=== PATIENT | male | born 1995 | race Caucasian/White ===

== ENCOUNTER 2023-02-20 17:24 | Emergency (ER) | payer SELFPAY ==
--- OUTSIDE RECORDS SUMMARY | 2023-02-20 17:27 | XMS REPORT | Continuity of Care Document ---
:1995 Author Organization [facility] t Address [address] [facility]. [address] [place] [address] Care Team Providers Name Role Phone PCP, PATIENT DOES NOT HAVE A Primary Care Physician Unavaila ble Nurse, [facility] Attending Clinician Unavailable ZINA WILSON Attending Clinician Unavailable VANESA MOORE Attending Clinician Unavailable Doctor Unassigned, [place] Attending Clinician Unavailable Payers Payer Name Policy Type Policy Number Effective Date Expiration Date S ource Problems Condition Condition Condition Status Onset Resolution Last Treating Co mments Source Name Details Category Date Date Treatment Clinician Date No known No known Disease Unive rs active active ity of problems problems [facility] Allergies, Adverse Reactions, Alerts Allergy Allergy Status Severity Reaction(s) Onset Inactive Treating Comm ents Source Name Type Date Date Clinician NO KNOWN Drug Active Univers ALLERGIE Class ity of S [facility] Social History Social Habit Start Date Stop Date Quantity Comments Source History of Cigarette Smoker Universi ty of tobacco use [facility] Exposure to 2022-01-09 2022-01-19 Not sure University SARS-CoV-2 00:00:00 15:42:00 [facility] (event) [place] Sex Ass[birth year] At [birth year] Universit y of 00:00:00 00:00:00 [facility] Smoking Status Start Date Stop Date Source Tobacco smoking consumption [facility] [place] [facility] unknown Branch Smokes tobacco daily 2022-01-19 00:00:00 [facility] Medications Ordered Filled Start Stop Current Ordering Indication Dosage Frequency Signature Comments Components Source Medication Medication Date Date Medication? Clinician (SIG) Name Name peggy Yes [id number] .5[in_u Place 0.5 Univers n 5 mg/gram 02-02 209118 s] Inches in i ty of (0.5 %) 00:00: right eye [place] [facility] 00 4 (four) Medic al ointment times Branch daily. Continue until you follow up with eye doctor. traMADol Yes [id number] 50mg Take 1 Univers (ULTRAM) 50 9 [id number] tablet by i ty of mg tablet 00:00: mouth [place] 00 every 6 Medical (six) Branch hours as needed for Pain (scale 7-10). peggy Yes [id number] .5[in_u Place 0.5 Univers n 5 mg/gram 02-02 [id number] s] Inches in i ty of (0.5 %) 00:00: right eye [place] [facility] 00 4 (four) Medic al ointment times Branch daily. Continue until you follow up with eye doctor. traMADol Yes [id number] 50mg Take 1 Univers (ULTRAM) 50 9 [id number] tablet by i ty of mg tablet 00:00: mouth [place] 00 every 6 Medical (six) Branch hours as needed for Pain (scale 7-10). Vital Signs Vital Name Observation Time Observation Value Comments Source Systolic blood 2022-01-19 21:00:00 172 mm[Hg] Univer sity [facility] [place] Diastolic blood 2022-01-19 21:00:00 116 mm[Hg] [facility] Heart rate 2022-01-19 21:00:00 137 /min [facility] Body temperature 2022-01-19 21:00:00 36.72 [facility] Respiratory rate 2022-01-19 21:00:00 16 /min [facility] Body height 2022-01-19 21:00:00 185.4 cm [facility] Body weight 2022-01-19 21:00:00 100.245 kg [facility] BMI 2022-01-19 21:00:00 29.16 kg/m2 [facility] Oxygen saturation in 2022-01-19 21:00:00 96 /min [facility] Arterial blood by [facility] Pulse oximetry Branch Procedures Procedure Date / Time Performed Performing Clinician Sourc e CONSENT/REFUSAL FOR 2022-01-19 20:43:49 Doctor Unassigned, No Un [facility] DIAGNOSIS AND Name Medical Branch TREATMENT Encounters Start End Encounter Admission Attending Care Care Encounter Source Date/Time Date/Time Type Type Clinicians Facility Department ID 2022-01-19 2022-01-19 Nurse Nurse, Ariel RUST [id number] Univers 16:00:00 16:20:00 Visit Db Urgent HEALTH [id number] ity of [facility] [id number] Brett as MIKE?BLEA [phone] [address] MEDICAL OFFICE BUILDING 2022-01-19 2022-01-[address] [facility] [id number] Univers 16:00:00 16:00:[facility] 2022-01-19 2022-01-[address] [facility] [id number] Univers 15:40:00 15:40:00 VANESA [facility] 2022-01-19 2022-01-19 Orders Doctor PIZARRO [id number] Univers 00:00:00 00:00:00 Only Unassigned, MARIBELL [id number] ity of [place] [facility] [id number] Brett as [phone] [facility] 009 Branch Results This patient has no known results.
--- NOTE | 2023-02-20 17:55 | EDPHYS ---
Physician Documentation [facility] Name: Karlos Arciniega Age: 27 yrs Sex: Male : 1995 Arrival Date: 02/20/2023 Time: 17:24 Bed Waiting Private MD: ED Physician John Duncan HPI: 02/20 17:45 This 27 yrs old Male presents to ER via Unassigned with complaints of Hearing Loss. cp 17:45 Onset: The symptoms/episode began/occurred 2 day(s) ago. cp 17:45 Associated signs and symptoms: Pertinent positives: earache, Pertinent negatives: cp cough, fever, sore throat, sinus congestion. Historical: - Allergies: 17:58 No Known Allergies; nj1 - PMHx: 17:58 None; nj1 - PSHx: 17:59 None; nj1 - Immunization history:: Client reports receiving the 1st dose of the Covid vaccine. - Social history:: Smoking status: Reported history of juuling and/or vaping. ROS: 17:49 ENT: Positive for ear pain, hearing loss, Negative for drainage from ear(s), sinus cp congestion, sinus pain, sore throat, difficulty swallowing, difficulty handling secretions, 17:49 Respiratory: Negative for cough, shortness of breath, wheezing, 17:49 Skin: Negative for rash, Exam: 17:50 Head/Face: Normocephalic, atraumatic. cp 17:50 Constitutional: The patient appears in no acute distress, alert, awake, comfortable, non-toxic, well developed, well nourished, 17:50 ENT: External ear(s): left ear canal obstructed by cerumen, right ear canal with swelling and mild drainage, mild pain to palpation of right ear canal, 17:50 Neck: ROM/movement: is normal, is supple, without pain, no range of motions cp limitations, Lymph nodes: no appreciated lymphadenopathy, 17:50 Chest/axilla: Inspection: normal, cp 17:50 Cardiovascular: Rate: normal, 17:50 Respiratory: the patient does not display signs of respiratory distress, Respirations: normal, no use of accessory muscles, no retractions, labored breathing, is not present, 17:50 Skin: no rash present. Vital Signs: 17:54 BP 158 / 90; Pulse 83; Resp 18; Temp 98.3; Pulse Ox 97% ; Weight 95.25 kg; Height 6 ft. nj1 2 in. ; Pain 3/10; 17:54 Body Mass Index 26.96 (95.25 kg, 187.96 cm) nj1 17:54 Pain Scale: Adult nj1 MDM: 17:55 Patient medically screened. cp 17:55 Differential diagnosis: otitis media, cerumen impaction, otitis externa. cp 17:55 Data reviewed: vital signs, nurses notes, and as a result, I will discharge patient. cp Counseling: I had a detailed discussion with the patient and/or guardian regarding the historical points, exam findings, and any diagnostic results supporting the discharge/admit diagnosis, to return to the emergency department if symptoms worsen or persist or if there are any questions or concerns that arise at home. Administered Medications: No medications were administered Disposition: 20:57 I was immediately available on-site in the Emergency Department for consultation in the ms3 care of the patient. Disposition Summary: 02/20/23 17:55 Discharge Ordered Notes: Location: Home cp Problem: new cp Symptoms: have improved cp Condition: Stable cp Diagnosis - Impacted cerumen, left ear cp - Otitis externa in other diseases classified elsewhere, right ear cp Followup: cp - With: Yoly Valadez MD - When: 2 - 3 days - Reason: Worsening of condition Discharge Instructions: - Discharge Summary Sheet cp - Earwax Buildup, Adult cp - Ear Drops, Adult cp - Otitis Externa cp Forms: - Medication Reconciliation Form cp - Thank You Letter cp - Antibiotic Education cp - Prescription Opioid Use cp - Patient Portal Instructions cp - Leadership Thank You Letter cp Prescriptions: - Cortisporin-TC 3.3-3-10-0.5 mg/mL Otic drops, suspension - instill 4 drops OTIC route every 6 hours for 7 days; 1 unit; Refills: 0, cp Product Selection Permitted Signatures: Boyd Kowalski PA PA cp Sims, Marcus, DO DO ms3 Grace Moralez RN RN nj1 Corrections: (The following items were deleted from the chart) 17:59 17:58 PSHx: None; nj1 nj1
--- NOTE | 2023-02-20 18:02 | ER ---
Nurse's Notes [facility] Name: Karlos Arciniega Age: 27 yrs Sex: Male : 1995 Arrival Date: 02/20/2023 Time: 17:24 Bed Waiting Private MD: Diagnosis: Impacted cerumen, left ear;Otitis externa in other diseases classified elsewhere, right ear Presentation: 02/20 17:54 Chief complaint: Patient states: Pt got ear wax out on Monday. Started having issues nj1 hearing one or two days later. Getting worse. Coronavirus screen: Vaccine status: Patient reports receiving the 1st dose of the Covid vaccine. Ebola Screen: Patient denies travel to an Ebola-affected area in the 21 days before illness onset. Initial Sepsis Screen: Does the patient meet any 2 criteria? No. Patient's initial sepsis screen is negative. Does the patient have a suspected source of infection? No. Patient's initial sepsis screen is negative. Risk Assessment: Do you want to hurt yourself or someone else? Patient reports no desire to harm self or others. Onset of symptoms was February 18, 2023. 17:54 Method Of Arrival: Ambulatory [facility] 17:54 Acuity: VANITA 4 nj1 Triage Assessment: 18:00 General: Appears in no apparent distress. comfortable, Behavior is calm, cooperative, nj1 appropriate for age. Pain: Complains of pain in right ear Pain currently is 3 out of 10 on a pain scale. at worst was 7 out of 10 on a pain scale. EENT: Reports decreased hearing in right ear since Monday pain in right ear. Neuro: No deficits noted. Cardiovascular: No deficits noted. Respiratory: No deficits noted. Historical: - Allergies: 17:58 No Known Allergies; nj1 - PMHx: 17:58 None; nj1 - PSHx: 17:59 None; nj1 - Immunization history:: Client reports receiving the 1st dose of the Covid vaccine. - Social history:: Smoking status: Reported history of juuling and/or vaping. Vital Signs: 17:54 BP 158 / 90; Pulse 83; Resp 18; Temp 98.3; Pulse Ox 97% ; Weight 95.25 kg; Height 6 ft. nj1 2 in. ; Pain 3/10; 17:54 Body Mass Index 26.96 (95.25 kg, 187.96 cm) nj1 17:54 Pain Scale: Adult [facility] ED Course: 17:26 Patient arrived in ED. rg4 17:27 Boyd Kowalski PA is PHCP. cp 17:27 John Duncan DO is Attending Physician. cp 17:54 Yoly Valadez MD is Referral Physician. cp 17:58 Triage completed. nj1 17:58 Arm band placed on right wrist. nj1 18:01 Provided Education on: Discharge instructions. nj1 18:01 No provider procedures requiring assistance completed. Patient did not have IV access nj1 during this emergency room visit. Administered Medications: No medications were administered Outcome: 17:55 Discharge ordered by MD. cp 18:01 Discharged to home ambulatory, nj1 18:01 Condition: stable 18:01 Discharge instructions given to patient, Instructed on discharge instructions, follow up and referral plans. medication usage, Demonstrated understanding of instructions, follow-up care, medications, Prescriptions given X 1, 18:02 Patient left the ED. nj1 Signatures: Boyd Kowalski PA PA Josie Mathew rg4 Grace Moralez, RN RN nj1 Corrections: (The following items were deleted from the chart) 17:59 17:58 PSHx: None; nj1 nj1
[2023-02-20 18:51] VITALS: BP 158/90; TEMP 98.3; O2SAT 97
== END 2023-02-20 18:02 | disposition home or self-care (01) ==
LOC: ER 17:24
DX: H61.22 Impacted cerumen, left ear (principal); H60.8X2 Other otitis externa, left ear
CPT/HCPCS: 99283

== ENCOUNTER 2023-03-21 10:46 | Emergency (ER) | payer SELFPAY ==
--- OUTSIDE RECORDS SUMMARY | 2023-03-21 10:55 | XMS REPORT | Continuity of Care Document ---
:1995 Author Organization [facility] t Address [address] [facility] [place] [address] Care Team Providers Name Role Phone PCP, PATIENT DOES NOT HAVE A Primary Care Physician Unavaila ble Nurse, [facility] Attending Clinician Unavailable ZINA WILSON Attending Clinician Unavailable VANESA MOORE Attending Clinician Unavailable Doctor Unassigned, [place] Attending Clinician Unavailable Payers Payer Name Policy Type Policy Number Effective Date Expiration Date S ource Problems Condition Condition Condition Status Onset Resolution Last Treating Co mments Source Name Details Category Date Date Treatment Clinician Date No known No known Disease Unive rs active active ity of problems problems [facility] Allergies, Adverse Reactions, Alerts Allergy Allergy Status Severity Reaction(s) Onset Inactive Treating Comm ents Source Name Type Date Date Clinician NO KNOWN Drug Active Univers ALLERGIE Class ity of S [facility] Social History Social Habit Start Date Stop Date Quantity Comments Source History of Cigarette Smoker Universi ty of tobacco use [facility] Exposure to 2022-01-09 2022-01-19 Not sure University SARS-CoV-2 00:00:00 15:42:00 [facility] (event) [place] Sex Assigned At [birth year] Universit y of 00:00:00 00:00:00 [facility] Smoking Status Start Date Stop Date Source Tobacco smoking consumption [facility] [place] [facility] unknown Branch Smokes tobacco daily 2022-01-19 00:00:00 [facility] Medications Ordered Filled Start Stop Current Ordering Indication Dosage Frequency Signature Comments Components Source Medication Medication Date Date Medication? Clinician (SIG) Name Name peggy Yes [id number] .5[in_u Place 0.5 Univers n 5 mg/gram 02-02 903410 s] Inches in i ty of (0.5 %) 00:00: right eye [place] [facility] 00 4 (four) Medic al ointment times Branch daily. Continue until you follow up with eye doctor. traMADol Yes [id number] 50mg Take 1 Univers (ULTRAM) 50 9 [id number] tablet by i ty of mg tablet 00:00: mouth [place] 00 every 6 Medical (six) Branch hours as needed for Pain (scale 7-10). peggy Yes [id number] .5[in_u Place 0.5 Univers n 5 mg/gram 02-02 910620 s] Inches in i ty of (0.5 %) 00:00: right eye [place] [facility] 00 4 (four) Medic al ointment times Branch daily. Continue until you follow up with eye doctor. traMADol Yes [id number] 50mg Take 1 Univers (ULTRAM) 50 9 [id number] tablet by i ty of mg tablet 00:00: mouth [place] 00 every 6 Medical (six) Branch hours as needed for Pain (scale 7-10). Vital Signs Vital Name Observation Time Observation Value Comments Source Systolic blood 2022-01-19 21:00:00 172 mm[Hg] Univer sity [facility] [place] [facility] Diastolic blood 2022-01-19 21:00:00 116 mm[Hg] [facility] Heart rate 2022-01-19 21:00:00 137 /min [facility] Body temperature 2022-01-19 21:00:00 36.72 [facility] Respiratory rate 2022-01-19 21:00:00 16 /min [facility] Body height 2022-01-19 21:00:00 185.4 cm [facility] Body weight 2022-01-19 21:00:00 100.245 kg [facility] BMI 2022-01-19 21:00:00 29.16 kg/m2 [facility] Oxygen saturation in 2022-01-19 21:00:00 96 /min [facility] Arterial blood by [facility] Pulse oximetry Branch Procedures Procedure Date / Time Performed Performing Clinician Sourc e CONSENT/REFUSAL FOR 2022-01-19 20:43:49 Doctor Unassigned, No Un [facility] DIAGNOSIS AND Name Medical Branch TREATMENT Encounters Start End Encounter Admission Attending Care Care Encounter Source Date/Time Date/Time Type Type Clinicians Facility Department ID 2022-01-19 2022-01-19 Nurse Nurse, Ariel [email or web address] [id number] Univers 16:00:00 16:20:00 Visit Db Urgent HEALTH [id number] ity of [facility] [id number] Brett as MIKE?BLEA [id number] [address] MEDICAL OFFICE BUILDING 2022-01-19 2022-01-19 Outpatient R STEVE [facility] [id number] Univers 16:00:00 [facility]:00[facility] 2022-01-19 Outpatient R [facility]SC[facility] [id number] Univers 15:40:00 15:40:00 VANESA [facility] 2022-01-19 2022-01-19 Orders Doctor PIZARRO [id number] Univers 00:00:00 00:00:00 Only Unassigned, MARIBELL [id number] ity of [place] [facility] [id number] Brett as [phone] [facility] 009 Branch Results This patient has no known results.
[2023-03-21 11:50] LABS: Specific Gravity 1.005 (1.005-1.030); Urine Bilirubin NEGATIVE (Negative); Urine Blood Negative (Negative); Urine Clarity Clear (Clear); Urine Color Colorless (Yellow); Urine Glucose NEGATIVE (Negative); Urine Protein NEGATIVE (Negative); Urine Urobilinogen Normal (Normal)
--- NOTE | 2023-03-21 12:19 | ER ---
Nurse's Notes [facility] Name: Karlos Arciniega Age: 27 yrs Sex: Male : 1995 Arrival Date: 03/21/2023 Time: 10:46 Bed 6 Private MD: Diagnosis: SARS-associated coronavirus as the cause of diseases classified elsewhere Presentation: 03/21 11:03 Chief complaint: Patient states: "I started having chills, congestion, and back pain mb9 last night." Pt denies burning with urination. Coronavirus screen: Vaccine status: Patient reports receiving the 2nd dose of the covid vaccine. Ebola Screen: No symptoms or risks identified at this time. Initial Sepsis Screen: Does the patient meet any 2 criteria? No. Patient's initial sepsis screen is negative. Does the patient have a suspected source of infection? No. Patient's initial sepsis screen is negative. Risk Assessment: Do you want to hurt yourself or someone else? Patient reports no desire to harm self or others. Onset of symptoms was March 21, 2023. 11:03 Acuity: AVNITA 4 mb9 11:03 Method Of Arrival: Ambulatory mb9 Triage Assessment: 11:04 General: Appears in no apparent distress. Behavior is calm, cooperative. Pain: mb9 Complains of pain in back. EENT: Nares with drainage noted. Neuro: [place] Agitation-Sedation Scale (RASS): 0 - Alert and Calm Level of Consciousness is awake, alert, obeys commands, Oriented to person, place, time, situation, Appropriate for age. Cardiovascular: Patient's skin is warm and dry. Respiratory: Airway is patent Respiratory effort is even, unlabored, Respiratory pattern is regular, symmetrical, Breath sounds are clear bilaterally. GI: Abdomen is round non-distended, Bowel sounds present X 4 quads. Abd is soft and non tender X 4 quads. : Denies burning with urination. Derm: Skin is pink, warm \\T\\ dry. Musculoskeletal: Range of motion: intact in all extremities. Historical: - Allergies: 11:03 No Known Allergies; mb9 - Home Meds: 11:03 None [Active]; mb9 - PMHx: 11:03 None; mb9 - PSHx: 11:03 left eye surgery; mb9 - Immunization history:: Adult Immunizations up to date. - Social history:: Smoking status: Patient denies any tobacco usage or history of. Screenin:05 [facility] ED Fall Risk Assessment (Adult) History of falling in the last 3 months, mb9 including since admission No falls in past 3 months (0 pts) Confusion or Disorientation No (0 pts) Intoxicated or Sedated No (0 pts) Impaired Gait No (0 pts) Mobility Assist Device Used No (0 pt) Altered Elimination No (0 pt) Score/Fall Risk Level 0 - 2 = Low Risk Oriented to surroundings, Maintained a safe environment, Educated pt \\T\\ family on fall prevention, incl call for assistance when getting out of bed. Abuse screen: Denies threats or abuse. Nutritional screening: No deficits noted. Tuberculosis screening: No symptoms or risk factors identified. Assessment: 11:05 Reassessment: see triage assessment. mb9 12:23 Reassessment: No changes from previously documented assessment. Patient and/or family mb9 updated on plan of care and expected duration. Pain level reassessed. Patient is alert, oriented x 3, equal unlabored respirations, skin warm/dry/pink. Vital Signs: 11:03 BP 139 / 72; Pulse 102; Resp 18; Temp 98.9(O); Pulse Ox 98% on R/A; Weight 90.72 kg; mb9 Height 6 ft. 1 in. ; 11:44 BP 114 / 57; Pulse 90; Resp 18; Pulse Ox 97% on R/A; mb9 11:03 Body Mass Index 26.39 (90.72 kg, 185.42 cm) mb9 ED Course: 10:49 Patient arrived in ED. rg4 10:49 Yolanda Tobin FNP-C is [facility]. kb 10:49 Laz Hein MD is Attending Physician. kb 10:54 Jonna Lerma RN is Primary Nurse. mb9 11:02 Arm band placed on. mb9 11:04 Triage completed. mb9 11:04 SARS-COV-2 RT PCR Sent. mb9 11:04 Flu Sent. mb9 11:05 Placed in gown. Bed in low position. Call light in reach. Side rails up X 1. Client mb9 placed on continuous cardiac and pulse oximetry monitoring. NIBP monitoring applied. 11:44 Urinalysis w/ reflexes Sent. ds4 12:23 No provider procedures requiring assistance completed. Patient did not have IV access mb9 during this emergency room visit. Administered Medications: No medications were administered Medication: 12:18 VIS not applicable for this client. mb9 Outcome: 12:19 Discharge ordered by MD. salomno 12:23 Discharged to home ambulatory, mb9 12:23 Condition: stable 12:23 Discharge instructions given to patient, family, Instructed on discharge instructions, follow up and referral plans. Demonstrated understanding of instructions, follow-up care, 12:24 Patient left the ED. mb9 Signatures: Yolanda Tobin, [employer]C PRESIDENT [employer]-Edin Olivera ds4 Josie Subramanian4 Jonna Lerma, RN RN mb9
--- NOTE | 2023-03-21 12:19 | EDPHYS ---
Physician Documentation [facility] Name: Karlos Arciniega Age: 27 yrs Sex: Male : 1995 Arrival Date: 03/21/2023 Time: 10:46 Bed 6 Private MD: ED Physician Laz Hein HPI: 03/21 12:07 This 27 yrs old Male presents to ER via Ambulatory with complaints of Flu Symptoms. kb 12:08 Patient is a 27-year-old male who reports chills started last night, fever chills, back kb pain, congestion started today. Denies urinary symptoms, nausea, vomiting or diarrhea.. Historical: - Allergies: 11:03 No Known Allergies; mb9 - Home Meds: 11:03 None [Active]; mb9 - PMHx: 11:03 None; mb9 - PSHx: 11:03 left eye surgery; mb9 - Immunization history:: Adult Immunizations up to date. - Social history:: Smoking status: Patient denies any tobacco usage or history of. ROS: 12:08 Abdomen/GI: Negative for abdominal pain, nausea, vomiting, diarrhea, and constipation, kb 12:08 Constitutional: Positive for body aches, chills, fatigue, fever, malaise, 12:08 ENT: Positive for sinus congestion, 12:08 Back: Positive for pain at rest, pain with movement, of the low back area, 12:08 Neuro: Positive for headache, 12:08 All other systems are negative, Exam: 12:08 Constitutional: This is a well developed, well nourished patient who is awake, alert, kb and in no acute distress. Head/Face: Normocephalic, atraumatic. ENT: Moist Mucous membranes Cardiovascular: Regular rate Respiratory: Respirations even and unlabored. No increased work of breathing. Talking in full sentences Abdomen/GI: Soft, non-tender. No distention Back: No spinal tenderness. No costovertebral tenderness. Full range of motion. Skin: Warm, dry with normal turgor. Normal color. MS/ Extremity: Pulses equal, no cyanosis. Neurovascular intact. Full, normal range of motion. Neuro: Awake and alert, GCS 15, oriented to person, place, time, and situation. Moves all extremities. Normal gait. Vital Signs: 11:03 BP 139 / 72; Pulse 102; Resp 18; Temp 98.9(O); Pulse Ox 98% on R/A; Weight 90.72 kg; mb9 Height 6 ft. 1 in. ; 11:44 BP 114 / 57; Pulse 90; Resp 18; Pulse Ox 97% on R/A; mb9 11:03 Body Mass Index 26.39 (90.72 kg, 185.42 cm) mb9 MDM: 10:49 Patient medically screened. kb 12:09 Differential Diagnosis: Influenza Upper Respiratory Infection Viral Syndrome Other kb COVID, UTI, kidney stone. Data reviewed: vital signs, nurses notes. 12:17 Counseling: I had a detailed discussion with the patient and/or guardian regarding the kb historical points, exam findings, and any diagnostic results supporting the discharge/admit diagnosis, lab results, the need for outpatient follow up, a family practitioner, to return to the emergency department if symptoms worsen or persist or if there are any questions or concerns that arise at home. 03/21 10:54 Order name: Flu; Complete Time: 11:31 kb 03/21 10:54 Order name: SARS-COV-2 RT PCR; Complete Time: 12:17 kb 03/21 10:54 Order name: Urinalysis w/ reflexes; Complete Time: 11:57 kb Administered Medications: No medications were administered Disposition: 14:00 I reviewed the patient's care provided by the Advanced Practice Provider and agree with donte the diagnosis and treatment plan. Disposition Summary: 03/21/23 12:19 Discharge Ordered Notes: Location: Home kb Condition: Stable kb Diagnosis - SARS-associated coronavirus as the cause of diseases classified elsewhere kb Followup: kb - With: Emergency Department - When: As needed - Reason: Worsening of condition Followup: kb - With: Private Physician - When: 2 - 3 days - Reason: Recheck today's complaints, Continuance of care, Re-evaluation by your physician Discharge Instructions: - Discharge Summary Sheet kb - COVID-19 kb - Viral Illness, Adult kb Forms: - Work release form kb - Medication Reconciliation Form kb - Thank You Letter kb - Antibiotic Education kb - Prescription Opioid Use kb - Patient Portal Instructions kb - Leadership Thank You Letter kb Signatures: Dispatcher [employer] Yolanda Dykes, CHIKA-C CHIKA-Laz Begum MD MD [id number] Breneman, Loni, RN RN mb9
[2023-03-21 12:30] VITALS: TEMP 98.9
[2023-03-21 12:33] VITALS: BP 114/57; O2SAT 97
== END 2023-03-21 12:24 | disposition home or self-care (01) ==
LOC: ER 10:46
DX: U07.1 COVID-19 (principal)
CPT/HCPCS: 81003; 87635; 87804; 99283